=== PATIENT | male | born 1935 | race Caucasian/White ===

== ENCOUNTER 2017-08-28 10:34 | Inpatient (IN) ==
--- NOTE | 2017-08-28 11:06 | History & Physical Report ---
Date of Encounter: 08/28/17 Time of Encounter: 10:45 24 Hour HP Update - Instructions Instructions: If the History and Physical is less than 30 days old and was completed prior to A.M. admission and or procedure and has NOT been updated on calendar day of procedure please complete this update prior to performing procedure. - Update Patient reports changes in Medical Condition: No Changes in examination, assessment, or condition: No Changes in Medication: No Preop tests/diagnostics Reviewed: Yes Surgery Remains Indicated: Yes Consent for Planned Operative Procedure(s) Verified: Yes - Pre-Operative Checklist Preoperative Checklist Indicated: Yes Prophylactic Antibiotic Ordered: Yes (vancomycin due to risk of MRSA) Home Medications Include Beta Juju: No Beta Juju Taken Today (Day of Surgery): No Beta Juju Taken Yesterday (Day Prior to Surgery): No Is VTE Prophylaxis Indicated?: Yes
--- NOTE | 2017-08-28 11:19 | Anesthesia Evaluation PreOp ---
Date of Encounter: 08/28/17 Time of Encounter: 11:17 - Past History Planned Operation: right CEA Cardiac History: HTN, Hyperlipidemia, Other (PVD) Pulmonary History: Denies Any Significant HX THEORETICAL PHYSICIST History: Denies Any Significant HX Other Medical History: Renal (CKD3), Diabetes Type II, Other (BPH) Anesthesia History: No Prior Anesthetic Complications, Past Anesthesia (back, b/ l TKA, mastoidectomy, TURP, AAA repair) Alcohol Use: none Drug use: none Medications and Allergies Cholecalciferol (Vitamin D3) [Vitamin D3] 2,000 unit PO DAILY 04/13/15 [History] Cyanocobalamin (Vitamin B-12) [Vitamin B12] 1,000 mcg PO DAILY 04/13/15 [History ] Ferrous Sulfate 325 mg PO DAILY 04/13/15 [History] Folic Acid 1 mg PO DAILY 04/13/15 [History] Aspirin [Ecotrin] 325 mg PO DAILY 08/28/17 [History] Atorvastatin Calcium [Lipitor] 20 mg PO HS 08/28/17 [History] Clopidogrel [Plavix] 75 mg PO DAILY 08/28/17 [History] Gabapentin [Neurontin] 600 mg PO HS 08/28/17 [History] Metformin HCl [Metformin HCl ER] 500 mg PO DAILY 08/28/17 [History] amLODIPine [Norvasc] 5 mg PO HS 08/28/17 [History] 3 Allergy/AdvReac Type Severity Reaction Status Date / Time No Known Allergies Allergy Verified 08/28/17 11:09 - Meds/Allergy Pre-op Review Medications Reviewed: Yes Allergies Reviewed: Yes Beta Blockers on Current Med List: No Anesthesia Results - Labs Laboratory Tests 08/27/17 08/27/17 08/27/17 11:01 11:01 11:01 Hgb 14.6 Hct 44.0 Plt Count 214 PT 10.6 INR 1.0 APTT 26.8 Sodium 139 Potassium 4.5 BUN 22 Creatinine 1.05 - Imaging EKG: report reviewed (SINUS BRADYCARDIA WITH FIRST DEGREE AV BLOCK) Additional studies: stress test 2015: Impression: Pharmacologic stress ECG is non diagnostic for ischemia due to failure to reach target heartrate. Gated EF = 65%. There is a small sized, mild to moderate intensity, fixed defect in the basal to mid inferoseptal segments c/w artifact. This study was negative for ischemia or infarction. Anesthesia Exam Selected Entries 08/28/17 10:54 Temperature 97.5 F L Pulse Rate 69 Respiratory Rate 18 Blood Pressure 169/87 O2 Sat by Pulse Oximetry 98 Weight: 11kg NPO (# of Hours): 8 - HEENT Pupil (Motor): EOMI Mallampati: II Teeth: Normal, Missing Oral Opening: Greater than 3 - THEORETICAL PHYSICIST LOC: Oriented THEORETICAL PHYSICIST Motor: Normal RUE, Normal LUE, Normal RLE, Normal LLE, Normal Face THEORETICAL PHYSICIST Sensory: Normal: RUE, LUE, RLE, LLE, Face - Cardiac Rhythm: Regular Murmur: None - Pulmonary Breath Sounds: bilateral Clear Respiratory Effort: Symmetrical Anesthesia Assess/Plan ASA Score: 3 Modified [place] Scale for Level of Consciousness: Cooperative, oriented, and tranquil Anesthetic Plan: General Monitoring Plan: Standard Monitors, A-Line Recovery Plan: PACU (agrees to proceed with GA and a-line)
[2017-08-28] MEDS ORDERED: Lidocaine -MPF 1% 2 ML VIAL ID ONE (11:21)
[2017-08-28] MEDS ORDERED: Vancomycin 1,500 MG in D5% in Water 250 ML IVPB ONE (11:21)
[2017-08-28] MEDS ORDERED: CeFAZolin Syr 2,000MG/20 ML 2,000 MG/20 ML SYRINGE IVPB ONE (11:21)
[2017-08-28] MEDS ORDERED: Ringers Solution, Lactated 1,000 ML IVC SCH (11:30)
[2017-08-28] MEDS ORDERED: Plasma-Lyte A (PH 7.4) 1,000 ML IVC SCH (11:30)
[2017-08-28] MEDS ORDERED: Bupivacaine-MPF 0.25% 10 ML VIAL ONE (11:43)
[2017-08-28] MEDS ORDERED: Heparin 1,000 UNITS/500 mL 1,000 ML ONE (11:43)
[2017-08-28] MEDS ORDERED: Protamine Sulfate 50 MG/5 ML VIAL IVP ONE (11:43)
[2017-08-28] MEDS ORDERED: Lidocaine 1% 20 ML MDV ONE (11:43)
[2017-08-28] MEDS ORDERED: Vancomycin 1,000 MG, Sodium Chloride IRRigation 1,000 ML IR ONE (12:05)
[2017-08-28] MEDS ORDERED: *HR* PHENYLEPHRINE 1,000 MCG/10 ML SYRINGE IVP ONE (12:41)
[2017-08-28] MEDS ORDERED: *HR* Succinylcholine 200 MG/10 ML VIAL IVP ONE (12:41)
[2017-08-28] MEDS ORDERED: *HR* Heparin 5,000 UNIT/ML VIAL ONE ×2 (12:41→14:02)
[2017-08-28] MEDS ORDERED: Dexamethasone 4 MG/ML VIAL ONE (12:41)
[2017-08-28] MEDS ORDERED: Lidocaine -MPF 4% 5 ML AMPUL ONE (12:41)
[2017-08-28] MEDS ORDERED: *HR* Propofol 200 MG/20 ML VIAL IVP ONE (12:41)
[2017-08-28] MEDS ORDERED: Lidocaine -MPF 2% 2 ML VIAL ONE ×2 (12:41)
[2017-08-28] MEDS ORDERED: Ondansetron 4 MG/2 ML VIAL ONE (12:41)
[2017-08-28] MEDS ORDERED: *HR* FentaNYL (PF) 100 MCG/2 ML VIAL ONE ×2 (12:41→15:20)
[2017-08-28] MEDS ORDERED: *HR* Remifentanil 2 MG VIAL IVP ONE (12:41)
[2017-08-28] MEDS ORDERED: *HR* Phenylephrine 10 MG/ML VIAL ONE (12:41)
[2017-08-28] MEDS ORDERED: Heparin 1,000 UNITS/500 mL 500 ML ONE (12:41)
[2017-08-28] MEDS ORDERED: EPHEDrine 50 MG/ML VIAL ONE (12:41)
[2017-08-28] MEDS ORDERED: *HR* Promethazine 25 MG/ML VIAL IVP PRN (13:40)
[2017-08-28] MEDS ORDERED: *HR* Labetalol 20 MG/4 ML SYRINGE IVP PRN ×2 (13:40→16:39)
[2017-08-28] MEDS ORDERED: MORPHINE SUL Oral CONC 10 MG/0.5 ML ORAL.SYG SL PRN (13:40)
[2017-08-28] MEDS ORDERED: *HR* HYDROmorphone 2 MG TABLET PO PRN (13:40)
[2017-08-28] MEDS ORDERED: *HR* FentaNYL (PF) 100 MCG/2 ML VIAL IVP PRN (13:49)
--- NOTE | 2017-08-28 15:27 | Operative Note ---
Date of procedure: 08/28/17 Pre-op diagnosis: 80-99% Right internal carotid artery stenosis Post-op diagnosis: same Procedure: Right carotid endarterectomy with hemashield patch angioplasty. Complications: None Anesthesia: GETA Surgeon: Don Perla Was there an physician assistant psychiatry present: No Estimated blood loss (cc): 50 Specimen: Right carotid plaque Condition: stable Disposition: PACU Procedure in Detail: Indications: The patient is an 82 year old male who was found to have a critical right internal carotid artery stenosis by carotid duplex. The findings were confirmed on CT angiogram. A carotid endarterectomy was recommended to reduce his risk of stroke. Procedure: The patient was identified in the preoperative area. The risks, benefits, and alternatives of the procedure were discussed and all questions were answered. The patient was then taken to the operating room and placed in supine position on the operating table. After the induction of general endotracheal anesthesia, the patient was cleaned and draped in normal sterile fashion. A longitudinal incision was made anterior to the right sternocleidomastoid muscle. Hemostasis was obtained via electrocautery. Through a process of blunt , sharp, and electrocautery dissection, the platysma was traversed and the jugular vein was identified. The facial vein was dissected, clamped, divided and ligated with a 2-0 silk suture ligature. The jugular vein was retracted to expose the carotid bifurcation. He received 2000 units of heparin intravenously at this time. Proximal dissection of the common and external carotid arteries were performed circumferentially. Dissection of the internal carotid was performed circumferentially. The dissection was carried distally due the location of his stenosis as noted on MRA. Vessels loops were passed around the internal and external carotid and an umbilical tape was passed from the common carotid artery. The patient received additional 3000 units of heparin intravenously. Additional heparin was given throughout the case to maintain adequate anticoagulation. After waiting adequate time for the heparin to circulate, the vessels were occluded and a longitudinal arteriotomy was made into the common carotid artery extending into the internal carotid beyond the plaque. The plaque was long, extended distally and was heavily calcified. Vigorous pulsatile retrograde flow was noted from the internal carotid artery upon release of the vessel loop. Due to the brisk pulsatile retrograde flow, a shunt was not placed. A dental Rogers was then used to perform a standard endarterectomy. Proximal and distal endpoints were inspected. No elevated flaps were noted. A Hemashield patch was cut to fit the defect and sutured in place with running 6 -0 Prolene. Prior to completing the closure, each vessel was flushed and then reoccluded. Heparinized saline was infused into the lumen. The patch was completed. Flow was restored in the external carotid artery, followed the common carotid artery, lastly the internal carotid artery was opened. A low resistance arterialized signal was present within the internal carotid artery beyond the patch. Thrombin and Gelfoam were used to aid in hemostasis. Meticulous hemostasis was obtained throughout the wound with electrocautery. Platelet rich and platelet poor plasma were infused into the wounds. The sternocleidomastoid was reapproximated with interrupted 3-0 Vicryl. Platelet rich and platelet poor plasma were infused into the wound. A TLS drain was brought through a separate stab incision and sutured in place with 0 silk suture. The platysma was reapproximated with running 3-0 Vicryl. Local anesthetic was infused in the skin. A 3-0 Monocryl was used to reapproximate the skin. A sterile dressing was applied. The patient was extubated, taken to the recovery room in stable condition.
--- NOTE | 2017-08-28 16:12 | Anesthesia Evaluation Post Op ---
Date of Encounter: 08/28/17 Time of Encounter: 16:10 - Vital Signs Vital Signs: Vital Signs/O2 Sat/Glucose, Most Current Temp Pulse Resp BP Pulse Ox 08/28/17 16:02 75 14 152/93 93 08/28/17 15:52 98.2 F 70 14 165/96 94 08/28/17 15:42 65 14 156/81 94 08/28/17 15:32 81 16 181/101 96 08/28/17 15:22 97.5 F L 87 20 177/93 97 - Lungs Lungs: Clear Ascult./Percussion - Airway Airway: Non-obstructed - Cardiovascular Regular Rate - Mental Status Mental Status: Alert & Oriented, Answers Appropriately - Pain Pain Scale: 1 Pain Scale used: Gonsalez-Manriquez (Faces) - Nausea Vomiting Nausea Vomiting: Not Present - Hydration Hydration: NPO, Able to void (attemting to use urinal) - Discharge PostOp Status: Transfer Patient to floor Anes Supervising Prov Stmt: PT seen/evaluated, R&B discussed, questions answered and consent obtained. Marcella Yoder MD
[2017-08-28] MEDS ORDERED: Naloxone 0.4 MG/ML INJ IVP PRN (16:39)
[2017-08-28] MEDS ORDERED: *HR* OxyCODONE Immed Rel 5 MG TABLET PO PRN (16:39)
[2017-08-28] MEDS ORDERED: Dextrose Gel 15 GM/37.5 ML TUBE PO PRN ×2 (16:39)
[2017-08-28] MEDS ORDERED: Ondansetron 4 MG/2 ML VIAL IVP PRN (16:39)
[2017-08-28] MEDS ORDERED: *HR* Dextrose 50 % in Water (Syg) 50 ML SYRINGE IVP PRN (16:39)
[2017-08-28] MEDS ORDERED: *HR* HYDROcodone/Acet 5/325 mg TABLET PO PRN (16:39)
[2017-08-28] MEDS ORDERED: D5% in Water 1,000 ML IVC PRN (16:39)
[2017-08-28] MEDS ORDERED: Acetaminophen 325 MG TABLET PO PRN (16:39)
[2017-08-28] MEDS: *HR* Heparin 5,000 UNIT/ML VIAL SQ SCH (17:31)
[2017-08-28] MEDS: *HR* Metoprolol 5 MG/5 ML VIAL IVP SCH ×2 (17:32→23:57)
[2017-08-28] MEDS: Insulin LISPRO 300 UNITS/3 ML VIAL SQ SCH (17:32)
[2017-08-28] MEDS ORDERED: *HR* Heparin 5,000 UNIT/ML VIAL SQ SCH (18:00)
[2017-08-28] MEDS: CeFAZolin Premix DUPLEX 2,000 MG/50 ML BAG IVPB SCH (20:22)
[2017-08-28] MEDS ORDERED: Insulin LISPRO 300 UNITS/3 ML VIAL SQ SCH (21:00)
[2017-08-28] MEDS ORDERED: Gabapentin 300 MG CAPSULE PO SCH (21:00)
[2017-08-28] MEDS ORDERED: amLODIPine 5 MG TABLET PO SCH (21:00)
[2017-08-29] MEDS: *HR* Metoprolol 5 MG/5 ML VIAL IVP SCH (05:08)
[2017-08-29] MEDS: *HR* Heparin 5,000 UNIT/ML VIAL SQ SCH (05:09)
[2017-08-29] MEDS: CeFAZolin Premix DUPLEX 2,000 MG/50 ML BAG IVPB SCH (05:09)
--- NOTE | 2017-08-29 06:39 | Discharge Summary ---
Date of Encounter: 08/29/17 Time of Encounter: 07:30 - Discharge Diagnosis (1) Carotid stenosis, right Priority: Primary Status: Chronic Comments: He is postoperative day #1 after right carotid endarterectomy. His is alert, without any focal neurologic deficits. His wound is healing well without drainage or hematoma. He will be discharged today. (2) Hypertension Priority: Secondary Status: Chronic Qualifiers: Hypertension type: essential hypertension Qualified Code(s): I10 - Essential (primary) hypertension (3) Hyperlipidemia Priority: Secondary Status: Chronic Qualifiers: Hyperlipidemia type: mixed hyperlipidemia Qualified Code(s): E78.2 - Mixed hyperlipidemia (4) Obesity (BMI 30-39.9) Priority: Secondary Status: Chronic (5) Coronary artery disease Priority: Secondary Status: Chronic Qualifiers: Coronary Disease-Associated Artery/Lesion type: [place] artery [place] vs. transplanted heart: [place] heart Associated angina: without angina Qualified Code(s): I25.10 - Atherosclerotic heart disease of [place] coronary artery without angina pectoris (6) Chronic kidney disease Priority: Secondary Status: Chronic Qualifiers: Chronic kidney disease stage: stage 3 (moderate) Qualified Code(s): N18.3 - Chronic kidney disease, stage 3 (moderate) - Discharge Medications Prescriptions: HYDROcodone/Acet 5/325 mg [[place] 5-325 mg] 1 tab PO Q6HR PRN 5 Days #50 tablet PRN Reason: postoperative pain Home Medications: Cholecalciferol (Vitamin D3) [Vitamin D3] 2,000 unit PO DAILY 04/13/15 [History] Cyanocobalamin (Vitamin B-12) [Vitamin B12] 1,000 mcg PO DAILY 04/13/15 [History ] Ferrous Sulfate 325 mg PO DAILY 04/13/15 [History] Folic Acid 1 mg PO DAILY 04/13/15 [History] Aspirin [Ecotrin] 325 mg PO DAILY 08/28/17 [History] Atorvastatin Calcium [Lipitor] 20 mg PO HS 08/28/17 [History] Gabapentin [Neurontin] 600 mg PO HS 08/28/17 [History] Metformin HCl [Metformin HCl ER] 500 mg PO DAILY 08/28/17 [History] amLODIPine [Norvasc] 5 mg PO HS 08/28/17 [History] HYDROcodone/Acet 5/325 mg [[place] 5-325 mg] 1 tab PO Q6HR PRN 5 Days #50 tablet 08/29/17 [Rx] Allergies/Adverse Reactions: 3 Allergy/AdvReac Type Severity Reaction Status Date / Time No Known Allergies Allergy Verified 08/28/17 11:09 Date of admission: 08/28/17 16:27 Primary care physician: Arcenio Moran MD Procedure(s) Performed: Right carotid endarterectomy Discharging clinician: Don Perla Anticipated date of discharge: 08/29/17 - Patient Status Disposition: Home, Self-Care Condition: Good Functional capacity at discharge: independent ambulation Overall status at discharge: patient is back to baseline - Discharge Instructions Instructions: Hydrocodone/Acetaminophen (By mouth) Follow Up With: Arcenio Moran MD [Primary Care Provider] - 09/04/17 2:00 pm Don Perla MD [Partnered Physician] - 10/06/17 1:00 pm Additional Instructions: May remove bandages and shower on 08/30/17. Wash wounds gently and pat to dry. Call Dr. Perla at [phone] with questions or concerns. - Diet and Activity Activity: increase activity as tolerated Diet: advance to your usual diet - Hospital Course Hospital course: Mr. Kelly is a 82 year old male with hypertension, hyperlipidemia, coronary artery disease and diabetes. He was admitted on 08/28/17 and underwent a right carotid endarterectomy on 08/27/17. He tolerated the procedure well and was discharged on postoperative day #1 without complications. - Time Spent with Patient Total time spent providing and/or coordinating discharge services: Exam General: Present: Conversant, No Apparent Distress HEENT: Present: Pupils equal Neck: Present: Other (no heamtoma, incision clean, dry and intact). Absent: Tracheal deviation Cardiac: Present: Reg Rate and Rhythm Lungs: Present: Normal Breath Sounds Neuro: Present: Alert and responsive, No focal deficits noted, Cranial nerves grossly intact, Motor nerves grossly intact, Sensory nerves grossly intact Abdomen: Present: Soft Vascular: Absent: Cyanosis, Edema Skin: Present: No rashes noted on visualized skin - VTE Documentation of Mechanical Device: Intermittent pneumatic compression device
[2017-08-29 07:01] VITALS: BP 131/66
[2017-08-29] MEDS: Insulin LISPRO 300 UNITS/3 ML VIAL SQ SCH (07:29)
[2017-08-29] MEDS ORDERED: Aspirin Enteric Coated 325 MG Tablet PO SCH (09:00)
[2017-08-29] MEDS ORDERED: Cholecalciferol (D-3) 1,000 UNIT TABLET PO SCH (09:00)
[2017-08-29] MEDS ORDERED: Cyanocobalamin (B-12) 1,000 MCG TABLET PO SCH (09:00)
[2017-08-29] MEDS ORDERED: Folic Acid 1 MG TABLET PO SCH (09:00)
== END 2017-08-29 10:05 | disposition home or self-care (01) | DRG 39 ==
LOC: SAMDAY 10:34 → 2NNU 16:27
PROVIDERS: ADMIT Surgery; ATTEND Surgery

== ENCOUNTER 2021-06-25 07:57 | Inpatient (IN) ==
[2021-06-25] MEDS ORDERED: Morphine Sulfate 2 MG/ML SYRINGE IVP ONE ×2 (08:23→11:51)
[2021-06-25] MEDS ORDERED: Ondansetron 4 MG/2 ML VIAL IVP ONE (08:23)
[2021-06-25] MEDS ORDERED: Isovue-370 500 ML BOTTLE IVP ONE (08:24)
[2021-06-25] MEDS ORDERED: 0.9 % Sodium Chloride 500 ML IV ONE (08:26)
[2021-06-25 08:45] LABS: Basophils % 0.2 %; Eosinophils % 0.2 %; Hematocrit 42.7 % (37.5-50.1); Hemoglobin 14.1 g/dL (12.9-16.9); Immature Granulocytes % 0.6 % (0-4); Lymphocytes # 1.2 K/mcL (0.6-4.6); Lymphocytes % 6.3 %; Mean Corpuscular Hemoglobin 30.8 pg (28.0-33.3); Mean Corpuscular Volume 93.2 fL (83.0-100.0); Mean Platelet Volume 10.1 fL (9.4-12.4); Monocytes # 1.5 K/mcL (0.0-1.3); Monocytes % 7.4 %; Neutrophils # 16.7 K/mcL (1.6-8.9); Platelet Count 268 K/mcL (140-400); Red Blood Count 4.58 M/mcL (4.19-5.50); Segmented Neutrophils % 85.3 %; White Blood Count 19.5 K/mcL (4.3-11.1)
[2021-06-25 09:07] LABS: Albumin 3.8 g/dL (3.5-5.7); Albumin/Globulin Ratio 1.1 (1.1-2.2); Bilirubin,Indirect 1.5 mg/dL (0.0-1.0); Bilirubin,Total 3.5 mg/dL (0.3-1.0); Calcium 9.6 mg/dL (8.6-10.3); Globulin 3.6 g/dL (2.4-3.5); Potassium 3.7 mEq/L (3.5-5.1); Total Protein 7.4 g/dL (6.4-8.9); Troponin I 0.04 ng/mL (< 0.04)
[2021-06-25] MEDS ORDERED: Piperacillin/Tazobactam 3.375 GM in Water for inj. (sterile) 20 ML IVP ONE (10:38)
[2021-06-25 11:49] LABS: Bacteria,Urine Few per hpf (None-Few); Bilirubin,Urine Small (Negative); Blood,Urine Small (Negative); Clarity,Urine Clear (Clear); Color,Urine Dark-Orange (Yellow); Glucose,Urine (UA) Normal (Normal); Hyaline Casts,Urine Few per lpf (None Seen); Ketones,Urine Negative (Negative); Leukocyte Esterase,Urine Negative (Negative); Mucus,Urine Few per lpf (None-Few); Nitrite,Urine Negative (Negative); Protein,Urine 100 mg/dL (Neg-Trace); Renal Epithelial Cells,Urine Few per hpf (None-Few); Specific Gravity,Urine > 1.030 (1.010-1.025); Transitional Epi Cells,Urine Few per hpf (None-Few); WBC,Urine 0-3 per hpf (0-3)
[2021-06-25] MEDS ORDERED: *HR* LORazepam 2 MG/ML VIAL IVP ONE (11:50)
[2021-06-25] MEDS: 0.9 % Sodium Chloride 1,000 ML IV ONE ×2 (11:56→15:36)
[2021-06-25] MEDS ORDERED: Naloxone 0.4 MG/ML INJ IVP PRN (12:27)
[2021-06-25] MEDS ORDERED: Acetaminophen 325 MG TABLET PO PRN (12:27)
[2021-06-25] MEDS ORDERED: Ondansetron 4 MG/2 ML VIAL IVP PRN (12:27)
[2021-06-25] MEDS: Morphine Sulfate 2 MG/ML SYRINGE IVP PRN ×2 (15:38→21:26)
[2021-06-25] MEDS ORDERED: *HR* Heparin 5,000 UNIT/ML VIAL IVP ONE (16:34)
[2021-06-25] MEDS ORDERED: *HR* Heparin 5,000 UNIT/ML VIAL IVP PRN ×2 (16:34)
[2021-06-25 18:02] LABS: INR 1.7; Prothrombin Time 18.9 Seconds (9.4-12.1)
[2021-06-25 18:05] LABS: Activated Partial Thrombo Time 32.7 Seconds (26.0-36.0)
[2021-06-25 18:26] LABS: Alanine Aminotransferase 140 Units/L (7-52); Albumin 3.4 g/dL (3.5-5.7); Alkaline Phosphatase 125 Units/L (34-104); Aspartate Amino Transferase 80 Units/L (13-39); Bilirubin,Direct 0.7 mg/dL (0.0-0.2); Bilirubin,Indirect 1.7 mg/dL (0.0-1.0); Bilirubin,Total 2.4 mg/dL (0.3-1.0); Globulin 3.5 g/dL (2.4-3.5); Total Protein 6.9 g/dL (6.4-8.9); Troponin I < 0.03 ng/mL (< 0.04)
[2021-06-25] MEDS: Heparin 25,000 UNIT/250 ML 25,000 UNIT/250 ML IV.SOLN IVC SCH (18:47)
[2021-06-25] MEDS: 0.9 % Sodium Chloride 1,000 ML IVC SCH (21:24)
[2021-06-25] MEDS: Piperacillin/Tazobactam 3.375 GM in 0.9 % Sodium Chloride Mini Bag 100 ML IVPB SCH (21:25)
[2021-06-26] MEDS: Morphine Sulfate 2 MG/ML SYRINGE IVP PRN ×3 (01:34→20:44)
[2021-06-26 01:54] LABS: Basophils % 0.3 %; Eosinophils # 0.1 K/mcL (0.0-0.6); Eosinophils % 0.7 %; Hematocrit 36.4 % (37.5-50.1); Immature Granulocytes % 0.5 % (0-4); Lymphocytes # 1.1 K/mcL (0.6-4.6); Lymphocytes % 7.7 %; Mean Corpuscular Hemoglobin 29.7 pg (28.0-33.3); Mean Corpuscular Volume 95.8 fL (83.0-100.0); Mean Platelet Volume 10.3 fL (9.4-12.4); Monocytes # 1.3 K/mcL (0.0-1.3); Monocytes % 8.8 %; Neutrophils # 11.9 K/mcL (1.6-8.9); Platelet Count 218 K/mcL (140-400); White Blood Count 14.5 K/mcL (4.3-11.1)
[2021-06-26 01:57] LABS: Hemoglobin 11.3 g/dL (12.9-16.9)
[2021-06-26 02:05] LABS: INR 1.6; Prothrombin Time 18.2 Seconds (9.4-12.1)
[2021-06-26 02:09] LABS: BUN/Creatinine Ratio 32 (6-26); Blood Urea Nitrogen 37 mg/dL (8-23); Calcium 8.7 mg/dL (8.6-10.3); Carbon Dioxide 20 mEq/L (23-29); Chloride 106 mEq/L (98-107); Glucose 68 mg/dL (70-105); Magnesium 2.1 mg/dL (1.6-2.6); Osmolality,Calculated 291 (280-300); Potassium 3.4 mEq/L (3.5-5.1); Sodium 137 mEq/L (136-145); eGFR For African Americans > 60 (> 60); eGFR For Non-African Americans 59 (> 60)
[2021-06-26 02:11] LABS: Albumin 3.1 g/dL (3.5-5.7); Bilirubin,Direct 1.2 mg/dL (0.0-0.2); Bilirubin,Indirect 0.9 mg/dL (0.0-1.0); Bilirubin,Total 2.1 mg/dL (0.3-1.0); Total Protein 6.1 g/dL (6.4-8.9)
[2021-06-26] MEDS: Piperacillin/Tazobactam 3.375 GM in 0.9 % Sodium Chloride Mini Bag 100 ML IVPB SCH ×3 (04:32→20:43)
[2021-06-26] MEDS ORDERED: D5% in Water 1,000 ML IVC PRN (12:42)
[2021-06-26] MEDS ORDERED: Dextrose Gel 15 GM/37.5 ML TUBE PO PRN ×2 (12:42)
[2021-06-26] MEDS ORDERED: *HR* Dextrose 50 % in Water (Syg) 50 ML SYRINGE IVP PRN (12:42)
[2021-06-26] MEDS: 0.9 % Sodium Chloride 1,000 ML IVC SCH (14:31)
[2021-06-26] MEDS: Heparin 25,000 UNIT/250 ML 25,000 UNIT/250 ML IV.SOLN IVC SCH (14:33)
[2021-06-26] MEDS ORDERED: Heparin 25,000 UNIT/250 ML 25,000 UNIT/250 ML IV.SOLN IVC SCH (15:30)
[2021-06-26 16:46] LABS: INR 1.3; Prothrombin Time 14.4 Seconds (9.4-12.1)
[2021-06-26 16:54] LABS: Activated Partial Thrombo Time 30.5 Seconds (26.0-36.0)
[2021-06-27] MEDS: Morphine Sulfate 2 MG/ML SYRINGE IVP PRN ×2 (01:19→05:42)
[2021-06-27 02:23] LABS: Hematocrit 32.6 % (37.5-50.1); Hemoglobin 10.3 g/dL (12.9-16.9); Mean Corpuscular HGB Conc 31.6 g/dL (31.6-35.5); Mean Corpuscular Hemoglobin 29.8 pg (28.0-33.3); Mean Corpuscular Volume 94.2 fL (83.0-100.0); Mean Platelet Volume 9.7 fL (9.4-12.4); Platelet Count 239 K/mcL (140-400); Red Blood Count 3.46 M/mcL (4.19-5.50); Red Cell Distribution Width 19.7 % (11.5-14.5); White Blood Count 11.2 K/mcL (4.3-11.1)
[2021-06-27 02:46] LABS: Alanine Aminotransferase 77 Units/L (7-52); Albumin 3.1 g/dL (3.5-5.7); Alkaline Phosphatase 107 Units/L (34-104); Aspartate Amino Transferase 39 Units/L (13-39); BUN/Creatinine Ratio 29 (6-26); Bilirubin,Total 1.4 mg/dL (0.3-1.0); Blood Urea Nitrogen 30 mg/dL (8-23); Calcium 8.6 mg/dL (8.6-10.3); Carbon Dioxide 19 mEq/L (23-29); Chloride 106 mEq/L (98-107); Glucose 110 mg/dL (70-105); Osmolality,Calculated 287 (280-300); Potassium 3.2 mEq/L (3.5-5.1); Sodium 135 mEq/L (136-145); Total Protein 6.1 g/dL (6.4-8.9); eGFR For African Americans > 60 (> 60); eGFR For Non-African Americans > 60 (> 60)
[2021-06-27] MEDS: Piperacillin/Tazobactam 3.375 GM in 0.9 % Sodium Chloride Mini Bag 100 ML IVPB SCH ×2 (03:49→21:07)
[2021-06-27] MEDS ORDERED: Isovue-300 50ML VIAL ONE (08:23)
[2021-06-27] MEDS ORDERED: *HR* FentaNYL (PF) 100 MCG/2 ML VIAL IVP PRN (08:30)
[2021-06-27] MEDS ORDERED: *HR* FentaNYL (PF) 100 MCG/2 ML VIAL ONE ×2 (09:03→11:11)
[2021-06-27] MEDS ORDERED: *HR* Propofol 200 MG/20 ML VIAL IVP ONE (09:03)
[2021-06-27] MEDS ORDERED: *HR* Rocuronium Bromide 50 MG/5 ML VIAL ONE ×2 (09:05→11:10)
[2021-06-27] MEDS ORDERED: Lidocaine -MPF 2% 5 ML VIAL ONE (09:05)
[2021-06-27] MEDS ORDERED: Heparin 1,000 UNITS/500 mL 500 ML ONE (09:06)
[2021-06-27] MEDS ORDERED: Acetaminophen IV 1,000 MG/100 ML BAG IVPB ONE (09:11)
[2021-06-27] MEDS ORDERED: Lidocaine HCL 4 ML Topical Solution (Laryng-O-Jet Kit Sterile Pak) TP ONE (09:11)
[2021-06-27] MEDS ORDERED: Ondansetron 4 MG/2 ML VIAL ONE (09:28)
[2021-06-27] MEDS ORDERED: Sugammadex Sodium 200 MG/2 ML VIAL IV ONE (09:35)
[2021-06-27] MEDS ORDERED: D5% in Water 1,000 ML IVC PRN (13:33)
[2021-06-27] MEDS ORDERED: Morphine Sulfate 2 MG/ML SYRINGE IVP PRN (13:33)
[2021-06-27] MEDS ORDERED: *HR* Heparin 5,000 UNIT/ML VIAL IVP PRN ×2 (13:33)
[2021-06-27] MEDS ORDERED: Ondansetron 4 MG/2 ML VIAL IVP PRN (13:33)
[2021-06-27] MEDS ORDERED: Dextrose Gel 15 GM/37.5 ML TUBE PO PRN ×2 (13:33)
[2021-06-27] MEDS ORDERED: Naloxone 0.4 MG/ML INJ IVP PRN (13:33)
[2021-06-27] MEDS ORDERED: *HR* Dextrose 50 % in Water (Syg) 50 ML SYRINGE IVP PRN (13:33)
[2021-06-27] MEDS: Gabapentin 300 MG CAPSULE PO SCH ×2 (13:50→21:10)
[2021-06-27] MEDS: *HR* OxyCODONE Immed Rel 5 MG TABLET PO PRN (13:51)
[2021-06-27] MEDS: Acetaminophen IV 1,000 MG/100 ML BAG IVPB SCH (14:36)
[2021-06-27] MEDS: Heparin 25,000 UNIT/250 ML 25,000 UNIT/250 ML IV.SOLN IVC SCH (14:37)
[2021-06-27] MEDS ORDERED: *HR* Metformin 500 MG TABLET PO SCH (21:00)
[2021-06-27] MEDS: amLODIPine 5 MG TABLET PO SCH (21:09)
[2021-06-27] MEDS: CLEAR EYES NATURAL TEARS 15 ML BOTTLE BOTH EYES SCH (22:33)
[2021-06-28] MEDS: Acetaminophen IV 1,000 MG/100 ML BAG IVPB SCH ×4 (00:53→21:44)
[2021-06-28] MEDS: *HR* OxyCODONE Immed Rel 5 MG TABLET PO PRN ×3 (03:54→22:29)
[2021-06-28 04:57] LABS: Basophils % 0.1 %; Hematocrit 30.6 % (37.5-50.1); Immature Granulocytes % 0.4 % (0-4); Lymphocytes # 0.8 K/mcL (0.6-4.6); Lymphocytes % 6.8 %; Mean Corpuscular HGB Conc 32.7 g/dL (31.6-35.5); Mean Corpuscular Hemoglobin 31.1 pg (28.0-33.3); Mean Platelet Volume 9.8 fL (9.4-12.4); Monocytes # 1.1 K/mcL (0.0-1.3); Monocytes % 9.9 %; Neutrophils # 9.1 K/mcL (1.6-8.9); Platelet Count 272 K/mcL (140-400); Red Blood Count 3.22 M/mcL (4.19-5.50); Red Cell Distribution Width 19.6 % (11.5-14.5); Segmented Neutrophils % 82.8 %
[2021-06-28 05:33] LABS: Alanine Aminotransferase 66 Units/L (7-52); Albumin/Globulin Ratio 0.9 (1.1-2.2); Alkaline Phosphatase 104 Units/L (34-104); Aspartate Amino Transferase 55 Units/L (13-39); BUN/Creatinine Ratio 27 (6-26); Bilirubin,Total 0.9 mg/dL (0.3-1.0); Blood Urea Nitrogen 30 mg/dL (8-23); Calcium 8.8 mg/dL (8.6-10.3); Carbon Dioxide 22 mEq/L (23-29); Chloride 106 mEq/L (98-107); Globulin 3.2 g/dL (2.4-3.5); Glucose 137 mg/dL (70-105); Osmolality,Calculated 288 (280-300); Potassium 4.2 mEq/L (3.5-5.1); Sodium 135 mEq/L (136-145); Total Protein 6.2 g/dL (6.4-8.9); eGFR For African Americans > 60 (> 60); eGFR For Non-African Americans > 60 (> 60)
[2021-06-28] MEDS: Piperacillin/Tazobactam 3.375 GM in 0.9 % Sodium Chloride Mini Bag 100 ML IVPB SCH ×3 (06:23→21:32)
[2021-06-28] MEDS: Gabapentin 300 MG CAPSULE PO SCH ×3 (08:39→21:37)
[2021-06-28] MEDS: Insulin LISPRO 300 UNITS/3 ML VIAL SUBQ SCH ×4 (11:05→21:46)
[2021-06-28] MEDS: amLODIPine 5 MG TABLET PO SCH (21:36)
[2021-06-28] MEDS: CLEAR EYES NATURAL TEARS 15 ML BOTTLE BOTH EYES SCH (21:43)
[2021-06-28] MEDS: Heparin 25,000 UNIT/250 ML 25,000 UNIT/250 ML IV.SOLN IVC SCH (22:00)
[2021-06-29] MEDS: Acetaminophen IV 1,000 MG/100 ML BAG IVPB SCH ×3 (04:29→20:48)
[2021-06-29] MEDS: Piperacillin/Tazobactam 3.375 GM in 0.9 % Sodium Chloride Mini Bag 100 ML IVPB SCH ×3 (04:32→20:49)
[2021-06-29 06:14] LABS: Basophils % 0.2 %; Eosinophils # 0.2 K/mcL (0.0-0.6); Eosinophils % 1.9 %; Hemoglobin 8.9 g/dL (12.9-16.9); Immature Granulocytes % 0.6 % (0-4); Lymphocytes # 1.3 K/mcL (0.6-4.6); Lymphocytes % 15.2 %; Mean Corpuscular HGB Conc 30.7 g/dL (31.6-35.5); Mean Corpuscular Hemoglobin 30.2 pg (28.0-33.3); Mean Corpuscular Volume 98.3 fL (83.0-100.0); Mean Platelet Volume 10.1 fL (9.4-12.4); Monocytes # 0.8 K/mcL (0.0-1.3); Monocytes % 9.2 %; Neutrophils # 6.2 K/mcL (1.6-8.9); Platelet Count 255 K/mcL (140-400); Red Blood Count 2.95 M/mcL (4.19-5.50); Red Cell Distribution Width 20.1 % (11.5-14.5); Segmented Neutrophils % 72.9 %; White Blood Count 8.6 K/mcL (4.3-11.1)
[2021-06-29 06:30] LABS: Alanine Aminotransferase 53 Units/L (7-52); Albumin/Globulin Ratio 0.9 (1.1-2.2); Alkaline Phosphatase 97 Units/L (34-104); Aspartate Amino Transferase 48 Units/L (13-39); BUN/Creatinine Ratio 26 (6-26); Bilirubin,Total 0.6 mg/dL (0.3-1.0); Blood Urea Nitrogen 34 mg/dL (8-23); Calcium 8.5 mg/dL (8.6-10.3); Carbon Dioxide 21 mEq/L (23-29); Chloride 105 mEq/L (98-107); Globulin 3.2 g/dL (2.4-3.5); Glucose 115 mg/dL (70-105); Osmolality,Calculated 285 (280-300); Potassium 4.1 mEq/L (3.5-5.1); Sodium 133 mEq/L (136-145); Total Protein 6.2 g/dL (6.4-8.9); eGFR For African Americans > 60 (> 60); eGFR For Non-African Americans 52 (> 60)
[2021-06-29] MEDS: Insulin LISPRO 300 UNITS/3 ML VIAL SUBQ SCH ×4 (08:36→21:04)
[2021-06-29] MEDS: Gabapentin 300 MG CAPSULE PO SCH ×3 (08:36→20:50)
[2021-06-29 10:32] LABS: Hematocrit 27.7 % (37.5-50.1); Hemoglobin 8.5 g/dL (12.9-16.9)
[2021-06-29] MEDS: Pantoprazole 40 MG VIAL IVP SCH ×2 (13:04→17:16)
[2021-06-29] MEDS: *HR* OxyCODONE Immed Rel 5 MG TABLET PO PRN (13:12)
[2021-06-29 16:46] LABS: Hematocrit 26.5 % (37.5-50.1); Hemoglobin 8.2 g/dL (12.9-16.9)
[2021-06-29] MEDS: CLEAR EYES NATURAL TEARS 15 ML BOTTLE BOTH EYES SCH (17:19)
[2021-06-29] MEDS: amLODIPine 5 MG TABLET PO SCH (20:54)
[2021-06-30] MEDS: Acetaminophen IV 1,000 MG/100 ML BAG IVPB SCH ×2 (03:53→13:59)
[2021-06-30] MEDS: Piperacillin/Tazobactam 3.375 GM in 0.9 % Sodium Chloride Mini Bag 100 ML IVPB SCH (03:54)
[2021-06-30] MEDS: Pantoprazole 40 MG VIAL IVP SCH ×2 (06:05→16:43)
[2021-06-30 06:39] LABS: Basophils % 0.7 %; Eosinophils # 0.4 K/mcL (0.0-0.6); Eosinophils % 6.2 %; Hematocrit 28.7 % (37.5-50.1); Hemoglobin 8.7 g/dL (12.9-16.9); Immature Granulocytes % 1.6 % (0-4); Lymphocytes # 1.3 K/mcL (0.6-4.6); Lymphocytes % 21.4 %; Mean Corpuscular HGB Conc 30.3 g/dL (31.6-35.5); Mean Corpuscular Hemoglobin 30.3 pg (28.0-33.3); Mean Platelet Volume 9.9 fL (9.4-12.4); Monocytes # 0.8 K/mcL (0.0-1.3); Monocytes % 13.4 %; Neutrophils # 3.5 K/mcL (1.6-8.9); Nucleated Red Blood Cells 0.3 /100 WBC (0); Platelet Count 265 K/mcL (140-400); Red Blood Count 2.87 M/mcL (4.19-5.50); Red Cell Distribution Width 20.4 % (11.5-14.5); Segmented Neutrophils % 56.7 %; White Blood Count 6.1 K/mcL (4.3-11.1)
[2021-06-30 07:12] LABS: Alkaline Phosphatase 95 Units/L (34-104); BUN/Creatinine Ratio 22 (6-26); Bilirubin,Total 0.6 mg/dL (0.3-1.0); Blood Urea Nitrogen 24 mg/dL (8-23); Calcium 8.5 mg/dL (8.6-10.3); Carbon Dioxide 21 mEq/L (23-29); Chloride 108 mEq/L (98-107); Glucose 73 mg/dL (70-105); Osmolality,Calculated 285 (280-300); Potassium 4.3 mEq/L (3.5-5.1); Sodium 136 mEq/L (136-145); eGFR For African Americans > 60 (> 60); eGFR For Non-African Americans > 60 (> 60)
[2021-06-30 07:13] LABS: Alanine Aminotransferase 43 Units/L (7-52); Albumin 2.9 g/dL (3.5-5.7); Total Protein 5.9 g/dL (6.4-8.9)
[2021-06-30 08:34] LABS: Aspartate Amino Transferase 44 Units/L (13-39)
[2021-06-30] MEDS: Insulin LISPRO 300 UNITS/3 ML VIAL SUBQ SCH ×4 (08:56→21:56)
[2021-06-30] MEDS: Gabapentin 300 MG CAPSULE PO SCH ×3 (09:03→20:27)
[2021-06-30] MEDS: *HR* OxyCODONE Immed Rel 5 MG TABLET PO PRN (09:04)
[2021-06-30] MEDS ORDERED: Acetaminophen 325 MG TABLET PO PRN (14:19)
[2021-06-30] MEDS: CLEAR EYES NATURAL TEARS 15 ML BOTTLE BOTH EYES SCH (19:10)
[2021-06-30] MEDS: Apixaban 5 MG TABLET PO SCH (20:28)
[2021-06-30] MEDS: amLODIPine 5 MG TABLET PO SCH (20:28)
[2021-07-01 06:53] LABS: Basophils % 0.6 %; Eosinophils # 0.4 K/mcL (0.0-0.6); Eosinophils % 6.8 %; Hematocrit 28.6 % (37.5-50.1); Hemoglobin 9.1 g/dL (12.9-16.9); Immature Granulocytes % 3.2 % (0-4); Lymphocytes # 1.3 K/mcL (0.6-4.6); Lymphocytes % 20.1 %; Mean Corpuscular HGB Conc 31.8 g/dL (31.6-35.5); Mean Corpuscular Hemoglobin 30.7 pg (28.0-33.3); Mean Corpuscular Volume 96.6 fL (83.0-100.0); Mean Platelet Volume 9.5 fL (9.4-12.4); Monocytes # 0.7 K/mcL (0.0-1.3); Neutrophils # 3.8 K/mcL (1.6-8.9); Platelet Count 367 K/mcL (140-400); Red Blood Count 2.96 M/mcL (4.19-5.50); Red Cell Distribution Width 20.4 % (11.5-14.5); Segmented Neutrophils % 58.3 %; White Blood Count 6.5 K/mcL (4.3-11.1)
[2021-07-01 07:11] VITALS: PULSE 74; TEMP 97.8; O2SAT 94
[2021-07-01] MEDS: Insulin LISPRO 300 UNITS/3 ML VIAL SUBQ SCH (07:24)
[2021-07-01] MEDS: *HR* OxyCODONE Immed Rel 5 MG TABLET PO PRN (07:25)
[2021-07-01] MEDS: Apixaban 5 MG TABLET PO SCH (07:25)
[2021-07-01] MEDS: Gabapentin 300 MG CAPSULE PO SCH (07:25)
[2021-07-01 07:34] VITALS: BP 164/85
== END 2021-07-01 11:40 | disposition home or self-care (01) | DRG 853 ==
LOC: 3ANU 07:57 → EMEROOARM 07:57 → SUATTDRO 12:00 → 3ANU 12:55 → SUATTDRO 06-26 15:17
PROVIDERS: ADMIT Pharmacist; ATTEND Family Medicine